=== PATIENT | male | born 1955 | race Caucasian/White ===

== ENCOUNTER 2022-06-20 11:58 | Outpatient (CLI) | payer MEDICARE ==
[~2022-06-20 11:58] MED LIST: Iopamidol 300 61% 100 ML VIAL FS ONE
== END 2022-06-20 11:59 | disposition home or self-care (01) ==
LOC: CSHCT 11:58
PROVIDERS: ATTEND Family Medicine
DX: I71.40 Abdominal aortic aneurysm, without rupture, unspecified (principal); I70.0 Atherosclerosis of aorta
CPT/HCPCS: 75635; 82565

== ENCOUNTER 2024-02-28 15:40 | Outpatient (CLI) | payer MEDICARE | END 2024-02-28 15:41 | disposition home or self-care (01) | LOC: CSHMRI 15:40 | PROVIDERS: ATTEND Family Medicine | DX: M54.12 Radiculopathy, cervical region (principal); Z98.1 Arthrodesis status; M48.02 Spinal stenosis, cervical region; M43.8X2 Other specified deforming dorsopathies, cervical region; M25.78 Osteophyte, vertebrae | CPT/HCPCS: 72141 ==